=== PATIENT | male | born 1990 | race African-American/Black ===

== ENCOUNTER 2018-08-15 22:22 | Emergency (ER) | payer BC ==
[~2018-08-15] VITALS: Ht 167.6 cm; Wt 61.2 kg
[2018-08-15 22:25] VITALS: BP 139/79
[2018-08-15] MEDS ORDERED: BUPIVAC MPF-EPI 0.5%-1:200000 30 ML VIAL. INJ ONE (23:00)
[2018-08-15] MEDS ORDERED: AMOXICILLIN/K CLAV 875/125MG TABLET. PO ONE (23:00)
[2018-08-15] MEDS ORDERED: DEXAMETHASONE 4 MG TABLET PO ONE (23:00)
[2018-08-15] MEDS ORDERED: CHLO15MO2 PO (23:38)
[2018-08-15] MEDS ORDERED: AMOX1TAB61 PO (23:38)
--- NOTE | 2018-08-15 23:38 | PHYS DOC ---
Past Medical History Past Medical History: No Pertinent History Past Surgical History: Other Additional Past Surgical Histo: 'LEFT EAR CYST REMOVAL' Smoking: Cigarettes Alcohol Use: Occasionally Drug Use: Marijuana Adult General Chief Complaint Chief Complaint: FACE PAIN HPI HPI 27-year-old male presents with left-sided facial pain and earache which is been ongoing since yesterday. Denies fever or chills. Denies known trauma. Patient reports pain is throbbing in nature. Review of Systems Review of Systems Constitutional: Denies fever or chills [] Eyes: Denies change in visual acuity, redness, or eye pain [] HENT: Reports earache and toothache Respiratory: Denies cough or shortness of breath [] Cardiovascular: Denies chest pain or palpitations GI: Denies abdominal pain, nausea, vomiting, or diarrhea [] Musculoskeletal: Denies back pain or joint pain [] Integument: Denies rash or skin lesions [] Neurologic: Denies headache, focal weakness or sensory changes [] Complete systems were reviewed and found to be within normal limits, except as documented in this note. Current Medications Current Medications Current Medications Medications (Trade) Dose Ordered Sig/Gisel Start Time Stop Time Status Last Admin Dose Admin Amoxicillin/ Clavulanate Potassium (Augmentin 875/ 125mg) 1 tab 1X ONCE 08/15/18 23:00 08/15/18 23:02 DC 08/15/18 23:12 1 TAB Bupivacaine HCl/ Epinephrine Bitart (Sensorcain-Mpf Epi 0.5%-1:[id number]) 30 ml 1X ONCE 08/15/18 23:00 08/15/18 23:02 DC 08/15/18 23:13 30 ML Dexamethasone (Decadron) 10 mg 1X ONCE 08/15/18 23:00 08/15/18 23:02 DC 08/15/18 23:12 10 MG Allergies Allergies Allergies Coded Allergies Type Severity Reaction Last Updated Verified No Known Drug Allergies 08/15/18 No Physical Exam Physical Exam Constitutional: Well developed, well nourished, appears uncomfortable HENT: Normocephalic, atraumatic, bilateral TMs erythematous and dull, oropharynx moist, no oral exudates, nose normal, left mandibular secondary molar with anterior dental pio and fracture [] Eyes: Conjunctiva normal, no discharge. [] Neck: Normal range of motion, no tenderness, supple, no meningeal signs Cardiovascular: Heart rate regular rhythm, no murmur [] Lungs & Thorax: Bilateral breath sounds clear to auscultation [] Skin: Warm, dry, no erythema, no rash. [] ] Neurologic: Alert and oriented X 3, no focal deficits noted. [] Psychologic: Affect normal, judgement normal, mood normal. [] Current Patient Data Vital Signs Vital Signs Date Time Temp Pulse Resp B/P (MAP) Pulse Ox O2 Delivery O2 Flow Rate FiO2 08/15/18 22:25 99.2 66 16 139/79 (99) 97 Room Air 99.2 EKG EKG [] Radiology/Procedures Radiology/Procedures [] Course & Med Decision Making Course & Med Decision Making Patient presents with left earache and dentalgia. Significant dental caries appreciated to left mandibular molar. Significant erythema also appreciated to TMs with dullness. Empiric antibiotics initiated. Pain addressed with oral steroid and dental block. Patient reports interval improvement of symptoms. Patient stable for discharge with outpatient follow-up with PCP/ dentist. Discussed findings and plan with patient, who acknowledges understanding and agreement. Dragon Disclaimer Dragon Disclaimer This electronic medical record was generated, in whole or in part, using a voice recognition dictation system. Additional Procedures Progress Timeout performed. Hand hygiene performed. Procedure performed by ED physician and medical student. Inferior alveolar block performed to left with report Bupivacaine 0.5% with epinephrine. Patient tolerated procedure well and without difficulty. Departure Departure Impression: Primary Impression: Dentalgia Additional Impressions: Dental caries Otitis media Disposition: 01 HOME, SELF-CARE Condition: STABLE Referrals: NO PCP (PCP) Patient Instructions: Dental Caries, Otitis Media, Adult, [id number], Toothache-Brief Scripts Chlorhexidine Gluconate (PERIDEX) 15 Ml Mouthwash 15 ML PO BID, #946 ML Prov: GORDON MONSALVE DO 08/15/18 Amoxicillin/Potassium Clav (AUGMENTIN 875-125 TABLET) 1 Each Tablet 1 TAB PO BID, #14 TAB Prov: GORDON MONSALVE DO 08/15/18 Problem Qualifiers Additional Impressions: Otitis media Otitis media type: unspecified Chronicity: acute Qualified Codes: H66.90 - Otitis media, unspecified, unspecified ear GORDON MONSALVE DO Aug 15, 2018 23:38
== END 2018-08-15 23:41 | disposition home or self-care (01) ==
LOC: ER 22:22
DX: K02.9 Dental caries, unspecified (principal); H66.93 Otitis media, unspecified, bilateral; R51 Headache; F17.210 Nicotine dependence, cigarettes, uncomplicated
CPT/HCPCS: 64400; 99284; J3490; J8540; 99283